=== PATIENT | male | born 1995 | race Two or more races ===

== ENCOUNTER 2021-02-26 09:09 | Emergency (ER) | payer MEDICAID, OTHER ==
[~2021-02-26] VITALS: Ht 175.3 cm; Wt 108.9 kg
[2021-02-26] MEDS ORDERED: HALOPERIDOL LACTATE 5 MG/ML INJ VIAL ONE (09:21)
[2021-02-26] MEDS ORDERED: diphenhdrAMINE HCL 50 MG/1 ML VL ONE (09:21)
[2021-02-26] MEDS ORDERED: LORazepam 2MG/ML-1ML VIAL ONE (09:22)
[2021-02-26] MEDS ORDERED: LORazepam 2MG/ML-1ML VIAL IM ONE (09:30)
[2021-02-26] MEDS ORDERED: HALOPERIDOL LACTATE 5 MG/ML INJ VIAL IM ONE (09:30)
[2021-02-26] MEDS ORDERED: diphenhdrAMINE HCL 50 MG/1 ML VL IM ONE (09:30)
[2021-02-26] MEDS ORDERED: SODIUM CHLORIDE 0.9% 1,000 ML IV ONE ×2 (11:30)
[2021-02-26 12:55] VITALS: BP 110/46
== END 2021-02-26 18:00 | disposition home or self-care (01) ==
LOC: ER 09:09 → EDBD 09:09 → ER 18:00
DX: G93.41 Metabolic encephalopathy (principal); F15.10 Other stimulant abuse, uncomplicated; R41.82 Altered mental status, unspecified
CPT/HCPCS: 70450; 96372; 99284; J1200; J1630; J2060